=== PATIENT | male | born 1945 | race Caucasian/White ===

== ENCOUNTER → 2023-12-14 09:23 | Outpatient (CLI) | payer MEDICARE, SELFPAY ==
--- NOTE | 2023-12-14 09:27 | DI.RAD.S_ITS ---
PROCEDURE: FL BARIUM SWALLOW W SPEECH INDICATIONS: APRAXIA OF SPEECH/DYSARTHIA/HX OF TONSIL CANCER COMPARISON: None. TECHNIQUE: Examination was conducted in conjunction with speech pathology per standard protocol. In the lateral projection, filming was performed of the patient swallowing. AP projection filming may also be performed with patient swallowing. COMPARISON: FINDINGS: Function: The oral preparatory phase appears unremarkable, with proper containment. The subsequent oral propulsive phase, pharyngeal phase, and esophageal phase of swallowing also appear unremarkable with all proffered substances (no solid given). There were episodes of laryngotracheal penetration and silent aspiration with thin liquids. There was vallecular pooling. Decreased retroversion of the epiglottis during swallowing. Morphology: No cricopharyngeal bar is identified. No cervical esophageal webs. No Zenker's diverticulum. No strictures. IMPRESSION: Episodes of laryngotracheal penetration and silent aspiration with thin liquids. Follicular pooling and decreased retroversion of the epiglottis during swallowing. Please see separate report by speech pathology for further details. Dictated by: Maikol Gale M.D. on 12/14/2023 at 19:44 Approved by: Maikol Gale M.D. on 12/14/2023 at 19:51
--- NOTE | 2023-12-14 14:06 | ST.SWALLOW ---
Visit Care Team Role Provider Type Attending Provider Primary Care Provider Referring Provider Specialty: Address: Phone: Fax: Email: ST Modified Barium Swallow Study EXTRACTOR FILLER Modified Barium Swallow Study Start: 12/14/23 12:43 Freq: Status: Active Protocol: Document 12/14/23 12:44 MAYELIN (Rec: 12/14/23 14:06 [email or web address] [id number]) Modified Barium Swallow Study Total Time Visit Start Time 10:00 Visit Stop Time 10:45 Total Visit Minutes 45 Referral Referring Physician Arsalan Lackey PA-C Setting Setting Outpatient Care Patient Information Identification Type Name,Date of Patient History Pt was seen for a Modified Barium Swallow Study to determine pt's safety for PO intake. Pt is currently has tube feeding with recreational PO intake. 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 Additionally, in October 2023, he had a CVA. An MBSS in the hospital at that time, indicated he was silently aspirating. He is currently receiving swallowing therapy in his home. According to the pt, his EXTRACTOR FILLER requested the MBSS to determine the pt's current risk for aspiration and safety for PO intake/diet advance. Subjective Observations Pt was seated in the fluoroscopy chair with directions and procedures described for him. He indicated he understood and agreed to proceed. Patient Positioning Position View Lat-A/P Imaging Lateral View Textures Administered Trials Presented Thin Liquid via Spoon (IDDSI 0 ),Thin Liquid via Cup (IDDSI 0 ),Thin Liquid via Straw (IDDSI 0),Mildly Thick Liquid via Spoon (IDDSI 2),Extremely Thick Liquid via Spoon (IDDSI 4) Barium Tablet No The IDDSI Framework Protocol: IDDSI.1 Oral Impairment Source: The Modified Barium Swallow Impairment Profile (MBSImP??) Lip Closure Escape progressing to mid-chin Tongue Control During Bolus Hold Posterior escape of less than half of bolus Bolus Transport/Lingual Motion Delayed initiation of tongue motion Oral Residue Residue collection on oral structures Location Tongue Initiation of Pharyngeal Swallow Bolus head at pyriforms Additional Oral Impairment Observations Pt was missing molars on lower left side. Otherwise dentition was adequate for mastication. OME indicated structures to be slower than expected with reduction in ROM and strength. Speech was dysarthric, but intelligible. Word finding difficulty was observed. Pharyngeal Impairment Source: The Modified Barium Swallow Impairment Profile (MBSImP??) Soft Palate Elevation No bolus between soft palate & pharyngeal wall Laryngeal Elevation Min.sup.move. thyroid cart. w/ min.approx.arytenoids to epiglot.petiole Anterior Hyoid Excursion No anterior movement Epiglottic Movement No inversion Laryngeal Vestibular Closure Incomplete; narrow column air/ contrast in laryngeal vestibule Pharyngeal Stripping Wave Absent Pharyngoesophageal Segment Opening Complete distention & complete duration; no obstruction of flow Tongue Base Retraction Wide column of contrast/air betwn tongue base & post. pharyngeal wall Pharyngeal Residue Collection of residue within/ on pharyngeal structures Location Diffuse (>3 areas) Additional Pharyngeal Impairment *Palpation of pt's neck and Observations base of tongue (left side) noted significant stiffness of structures secondary to radiation treatment *No epiglottal inversion or stripping of the posterior pharyngeal wall (Residual effects of radiation therapy) *Reduced base of tongue retraction. *Moderate pooling in the pharyngeal cavities requiring >1 swallow per trial to clear. *Laryngeal penetration observed x5 *Trace tracheal aspiration observed x1 *Head turn to the left effective in reducing penetration/aspiration *Head turn right not effective *Chin tuck was not effective and resulted in penetration of laryngeal vestibule with residual remaining on vocal folds *Pt's soft throat clear ineffective in clearing laryngeal vestibule; however, a strong throat clear/cough was effective in clearance of residue in laryngeal vestibule *Pt reported that he has devised a swallow that he can feel that allows him to swallow without choking. Pt was asked to demonstrate his swallow. He performed an effortful swallow technique. He was able to safely tolerate the thin liquid trial using this swallow. A/P View The IDDSI Framework Protocol: IDDSI.1 Clinical Impressions Dysphagia Type Oral,Pharyngeal Findings Pt presented with oropharyngeal dysphagia. Pt currently is fed artificially. he is eating recreational PO. Pt was reported to have silently aspirated in October following his CVA. Pt did aspirate a trace amount today and was able to clear trachea and larynx with a strong throat clear/cough. Pt is enrolled in swallow therapy and is following an exercise program devised by his EXTRACTOR FILLER. Pt was encouraged to continue this program for a minimum of 6 months at 20 minutes two times each day. If pt follows EXTRACTOR FILLER recommendations, a repeat MBSS is recommended to determine progress and risk for aspiration. As pt appears to have improved from initial MBSs in October 2023, there is potential for continued improvement. Rehabilitation Potential Good Patient Appropriate for Therapy Yes: Continue with current EXTRACTOR FILLER therapy Recommendations Diet Liquids Order Thin (IDDSI 0) Comments Recreational PO intake with safe swallow strategies implemented Treatment Plan Therapy Recommendations Outpatient Speech Therapy
== END ==
PROVIDERS: Referring Provider Physician Assistant Medical; Visit Provider Physician Assistant Medical
DX: R48.2 Apraxia (principal); R47.1 Dysarthria and anarthria; Z85.818 Personal history of malignant neoplasm of other sites of lip, oral cavity, and pharynx
CPT/HCPCS: 74230; 92611